=== PATIENT | male | born 1955 | race Caucasian/White ===

== ENCOUNTER 2017-10-26 21:49 | Emergency (ER) | END 2017-10-26 23:02 | disposition left against medical advice (07) ==

== ENCOUNTER 2017-11-20 14:53 | Emergency (ER) | END 2017-11-20 16:01 | disposition left against medical advice (07) ==

== ENCOUNTER 2019-01-03 00:47 | Emergency (ER) | payer OTHER ==
[~2019-01-03] VITALS: Wt 75.5 kg
--- NOTE | 2019-01-03 04:38 | ERD ---
ER Documentation Chief Complaint Chief Complaint right middle finger injury x 1 week HPI This is a 63-year-old male who presents to emerge department with complaints of right middle finger injury about a week ago. Patient stated that he accidentally hit his right middle finger to hard object, while is clean. Denies punctured wound/laceration. Denies headache, head injury, loss of consciousness, dizziness, neck pain, neck stiffness, throat pain, difficulty swallowing, difficulty breathing lying flat, shoulder pain, chest pain, back pain, abdominal pain, nausea, vomiting, constipation, diarrhea, urinary symptoms, loss of bowel and bladder control, difficulty walking due to pain, numbness or tingling sensation, calf pain, recent travel, recent major surgery in the last 3 weeks, calf pain, recent long travel, recent exposure to any illness, recent antibiotic use in the last 3 months, fever, chills, seizures. Past medical history: Surgical history: Social: Denies smoking, use of alcoholic beverages, use of illegal drugs. ROS All systems reviewed and are negative except as per history of present illness. Medications Home Meds Active Scripts Omeprazole* (Omeprazole*) 40 Mg Capsule.dr, 40 MG PO DAILY, #30 CAP Prov:PASILABAN,KLAR F 01/03/19 Ibuprofen* (Motrin*) 800 Mg Tab, 800 MG PO Q6H PRN for PAIN AND OR ELEVATED TEMP, #30 TAB Prov:PHUONGBANANGELITOAR F 01/03/19 Allergies Allergies: Coded Allergies: No Known Drug Allergies (Verified Allergy, Unknown, 10/26/17) Physical Exam Vitals Vital Signs Date Temp Pulse Resp B/P (MAP) Pulse Ox O2 O2 Flow FiO2 Time Delivery Rate 01/03/19 98.0 62 18 120/68 99 Room Air 06:36 (85) 01/03/19 97.0 86 16 170/78 97 00:53 (108) Physical Exam Const: No acute distress Head: Atraumatic Eyes: Normal Conjunctiva ENT: Normal External Ears, Nose and Mouth. Neck: Full range of motion. No meningismus. Resp: Clear to auscultation bilaterally Cardio: Regular rate and rhythm, no murmurs Abd: Soft, non tender, non distended. Normal bowel sounds Skin: No petechiae or rashes Back: No midline or flank tenderness Ext: No cyanosis, or edema. Right middle finger: Mild swelling. Good and full range of motion of MCP/PIP/DIP with no suspicion of tendon injury/septic joint. No subungual hematoma. No signs of infection, cellulitis, paronychia, onychomycosis. No neurovascular deficits. Neur: Awake and alert. No neurological deficits. Psych: Normal Mood and Affect Results 24 hrs Current Medications Medications Dose Sig/Gabby Start Time Status Last (Trade) Ordered Route PRN Stop Time Admin Dose Reason Admin 1 tab ONCE ONCE 01/03/19 DC 01/03/19 Acetaminophen PO 05:00 05:27 / 01/03/19 05:01 Hydrocodone Bitart ([place] (5/275)) Procedures/MDM Diagnostic tests: X-ray of the right middle finger: Soft tissue swelling without evidence of acute fracture. Treatment: [place]. Splinting. Finger splint. Re-evaluation: No neurovascular deficit prior to and after the application of splint. Differential diagnosis I have low suspicion for deep space infection, fracture, open fracture, tendon injury, compartment syndrome, subungual hematoma. Final diagnosis: Finger sprain. Prescription: Motrin. Follow-up with PCP in the next 24-48 hours. Come back here in the emergency dep artment for any new symptoms or any worsening symptoms. All questions and concerns were answered. Patient and family members verbalized understanding and agreed with plan of care. Hemodynamically stable on discharge. Departure Diagnosis: Primary Impression: Finger injury Additional Impression: Pain of finger Condition: Stable Additional Instructions: Follow-up with PCP in the next 24-48 hours. Come back here in the emergency department for any new symptoms or any worsening symptoms. LULU VILLAVICENCIO Jan 03, 2019 04:38
[2019-01-03] MEDS ORDERED: HYDROCODONE/APAP (5/325) TAB PO ONE (05:00)
[2019-01-03] MEDS ORDERED: IBUP800T48 PO (05:36)
[2019-01-03] MEDS ORDERED: OMEP40CA6 PO (05:36)
[2019-01-03 06:36] VITALS: BP 120/68; PULSE 62; RESP 18
== END 2019-01-03 06:38 | disposition home or self-care (01) ==
LOC: FTE 00:47
DX: S63.612A Unspecified sprain of right middle finger, initial encounter (principal); W22.8XXA Striking against or struck by other objects, initial encounter; Y92.9 Unspecified place or not applicable
CPT/HCPCS: 29130; 73140; Z7502; Z7610

== ENCOUNTER 2019-01-10 12:28 | Emergency (ER) | payer OTHER ==
[~2019-01-10] VITALS: Ht 185.4 cm; Wt 84.0 kg
[~2019-01-10 12:28] MED LIST: IBUP800T48 PO; OMEP40CA6 PO
[2019-01-10 12:31] VITALS: Ht 185.4 cm; Wt 84.0 kg
--- NOTE | 2019-01-10 13:48 | ERD ---
ER Documentation Chief Complaint Chief Complaint RIGHT CHEST WALL PAIN HURTS WITH MOVEMENTS HPI This is a 63-year-old male who presents for evaluation of right-sided chest wall pain. Pain has been going on for the last several hours, it is associated with movement, he denies history of trauma, he has no shortness of breath, he has no palpitations, he has not had a fever, no leg swelling cough or hemoptysis. ROS All systems reviewed and are negative except as per history of present illness. Medications Home Meds Active Scripts Omeprazole* (Omeprazole*) 40 Mg Capsule.dr, 40 MG PO DAILY, #30 CAP Prov:PASILABANANGELITOAR F 01/03/19 Ibuprofen* (Motrin*) 800 Mg Tab, 800 MG PO Q6H PRN for PAIN AND OR ELEVATED TEMP, #30 TAB Prov:WINILABANLULU F 01/03/19 Allergies Allergies: Coded Allergies: No Known Drug Allergies (Verified Allergy, Unknown, 10/26/17) PMhx/Soc Hx Alcohol Use: Yes Hx Tobacco Use: Yes Physical Exam Vitals Vital Signs Date Temp Pulse Resp B/P (MAP) Pulse Ox O2 O2 Flow FiO2 Time Delivery Rate 01/10/19 98.1 100 18 144/90 100 12:31 (108) Physical Exam Const: Well-appearing, nontoxic, afebrile Head: Atraumatic Eyes: Normal Conjunctiva ENT: Normal External Ears, Nose and Mouth. Neck: Full range of motion. No meningismus. Resp: Clear to auscultation bilaterally Cardio: Regular rate and rhythm, no murmurs Chest wall: There is notable point tenderness to the right chest wall, there are no hematomas, no overlying erythema, no crepitus. Abd: Soft, non tender, non distended, negative Marinelli sign, no McBurney's point tenderness.. Normal bowel sounds Skin: No petechiae or rashes Back: No midline or flank tenderness Ext: No cyanosis, or edema Neur: Awake and alert Psych: Normal Mood and Affect Result Diagram: 01/10/19 1253 01/10/19 1253 Results 24 hrs Laboratory Tests Test 01/10/19 12:53 White Blood Count 11.3 10^3/ul Red Blood Count 3.29 10^6/ul Hemoglobin 10.1 g/dl Hematocrit 31.6 % Mean Corpuscular Volume 96.0 fl Mean Corpuscular Hemoglobin 30.7 pg Mean Corpuscular Hemoglobin Concent 32.0 g/dl Red Cell Distribution Width 13.3 % Platelet Count 305 10^3/UL Mean Platelet Volume 9.3 fl Immature Granulocytes % 0.400 % Neutrophils % 78.0 % Lymphocytes % 14.4 % Monocytes % 5.6 % Eosinophils % 1.0 % Basophils % 0.6 % Nucleated Red Blood Cells % 0.0 /100WBC Immature Granulocytes # 0.050 10^3/ul Neutrophils # 8.8 10^3/ul Lymphocytes # 1.6 10^3/ul Monocytes # 0.6 10^3/ul Eosinophils # 0.1 10^3/ul Basophils # 0.1 10^3/ul Nucleated Red Blood Cells # 0.0 10^3/ul Sodium Level 142 mmol/L Potassium Level 3.4 mmol/L Chloride Level 108 mmol/L Carbon Dioxide Level 27 mmol/L Anion Gap 7 Blood Urea Nitrogen 23 mg/dl Creatinine 1.24 mg/dl Est Glomerular Filtrat Rate mL/min 59 mL/min Glucose Level 124 mg/dl Calcium Level 9.2 mg/dl Troponin I < 0.012 ng/ml Current Medications Medications Dose Sig/Gabby Start Time Status Last (Trade) Ordered Route PRN Stop Time Admin Dose Reason Admin 1,000 mg ONCE STAT 01/10/19 DC Acetaminophen PO 13:54 (Tylenol 01/10/19 13:55 Tab) Ibuprofen 400 mg ONCE ONCE 01/10/19 (Motrin) PO 14:00 01/10/19 14:01 Procedures/MDM This is a 63-year-old male who presents for evaluation of right-sided chest wall pain, without radiation. Patient had no cardiopulmonary symptoms, given his ag e, cardiac work-up was ordered to evaluate for any sign of acute coronary syndrome, this was negative, with a negative troponin, and EKG showing no evidence of acute ischemia. Chest x-ray showed cardiomegaly but was otherwise overall unremarkable. Patient was given out and is in the ED, at this point feel he is stable for outpatient follow-up, at discharge she was in no distress. EKG: Rate/Rhythm: Normal Sinus Rhythm QRS, ST, T-waves: LVH. No changes consistent w/ acute ischemia Impression: No evidence of ischemia or arrhythmia Departure Diagnosis: Primary Impression: Chest wall pain Condition: Stable MAXINE MCBRIDE MD Jan 10, 2019 13:48
[2019-01-10] MEDS ORDERED: ACETAMINOPHEN 500 MG TAB PO STA (13:54)
[2019-01-10] MEDS ORDERED: IBUPROFEN 200 MG TAB PO ONE (14:00)
[2019-01-10 14:47] VITALS: BP 141/89; PULSE 62; RESP 20
== END 2019-01-10 14:49 | disposition home or self-care (01) ==
LOC: E/R 12:28
DX: R07.89 Other chest pain (principal); R40.2142 Coma scale, eyes open, spontaneous, at arrival to emergency department; R40.2252 Coma scale, best verbal response, oriented, at arrival to emergency department; R40.2362 Coma scale, best motor response, obeys commands, at arrival to emergency department; Z87.891 Personal history of nicotine dependence
CPT/HCPCS: 71045; 80048; 84484; 85025; 93005; Z7502; Z7610

== ENCOUNTER 2019-03-06 22:27 | Emergency (ER) | payer OTHER ==
[~2019-03-06] VITALS: Ht 185.4 cm; Wt 81.0 kg
[2019-03-06 22:35] VITALS: Ht 185.4 cm; Wt 81.0 kg
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
[2019-03-07] MEDS ORDERED: ONDANSETRON (ODT) 4 MG TAB ODT STA (00:14)
[2019-03-07] MEDS ORDERED: LIDOCAINE 1% (MDV) 20 ML INJ SC ONE (00:30)
[2019-03-07] MEDS ORDERED: DIPHTH/TET/ACEL PERTUSS (ADULT) 0.5 ML VIAL IM* ONE (00:30)
[2019-03-07] MEDS ORDERED: HYDROCODONE/APAP (10/325) TAB PO ONE (00:30)
[2019-03-07] MEDS ORDERED: SULF1TAB31 PO (04:00)
[2019-03-07] MEDS ORDERED: IBUP800T48 PO (04:00)
[2019-03-07] MEDS ORDERED: NICARDipine HCL 30 MG CAPSULE PO ONE (04:30)
[2019-03-07 04:45] VITALS: BP 161/78; PULSE 79; RESP 18
== END 2019-03-07 04:50 | disposition home or self-care (01) ==
LOC: FTE 22:27
DX: S01.511A Laceration without foreign body of lip, initial encounter (principal); S06.0X0A Concussion without loss of consciousness, initial encounter; F17.210 Nicotine dependence, cigarettes, uncomplicated; Y04.2XXA Assault by strike against or bumped into by another person, initial encounter; Z23 Encounter for immunization
CPT/HCPCS: 12011; 70450; 70486; 72125; 90471; 90715; Z7502; Z7610

== ENCOUNTER 2019-03-10 13:55 | Emergency (ER) | payer OTHER ==
[~2019-03-10] VITALS: Ht 185.4 cm; Wt 77.3 kg
[~2019-03-10 13:55] MED LIST changes: +SULF1TAB31 PO
[2019-03-10 14:02] VITALS: BP 181/100; PULSE 80; RESP 20; Ht 185.4 cm; Wt 77.3 kg
[2019-03-10] MEDS ORDERED: KETOROLAC 60 MG INJ IM STA (14:46)
[2019-03-10] MEDS ORDERED: HYDR-4011 PO (14:47)
[2019-03-10] MEDS ORDERED: CYCL10TA7 PO (14:47)
[2019-03-10] MEDS ORDERED: NAPR-985 PO (14:47)
--- NOTE | 2019-03-10 14:57 | ERD ---
ER Documentation Chief Complaint Chief Complaint back pain this morning, bib [id number] HPI 83-year-old male presenting with back pain that started this morning. Patient states is his left hip and extends down his left buttock. He has pain with walking and has not taken any medications for symptoms. He denies any recent falls or traumatic injuries. He denies any numbness or tingling to his leg. Denies any changes in urination or bowel movement. Medical problems denies. Allergy to penicillin. Surgical history denies. Social history smokes cigarettes and marijuana. Drug use denies ROS All systems reviewed and are negative except as per history of present illness. Medications Home Meds Active Scripts Cyclobenzaprine Hcl* (Cyclobenzaprine Hcl*) 10 Mg Tablet, 10 MG PO TID, #15 TAB Prov:NIRU CASTLE PA-C 03/10/19 Naproxen* (Naprosyn*) 500 Mg Tablet, 500 MG PO BID PRN for PAIN AND/OR INFLAMMATION, #30 TAB Prov:NIRU CASTLE PA-C 03/10/19 Hydrocodone/Acetaminophen ([place] 5-325 Tablet) 1 Each Tablet, 1 TAB PO Q6H PRN for PAIN, #7 TAB Prov:NIRU CASTLE PA-C 03/10/19 Sulfamethoxazole/Trimethoprim* (Bactrim Ds* Tablet) 1 Each Tablet, 1 TAB PO BID for 7 Days, #14 TAB Prov:PASILABAN,ANGELITOAR F 03/07/19 Ibuprofen* (Motrin*) 800 Mg Tab, 800 MG PO Q6H PRN for PAIN AND OR ELEVATED TEMP, #30 TAB Prov:PASILABAN,KLAR F 03/07/19 Omeprazole* (Omeprazole*) 40 Mg Capsule.dr, 40 MG PO DAILY, #30 CAP Prov:PASILABAN,KLAR F 01/03/19 Ibuprofen* (Motrin*) 800 Mg Tab, 800 MG PO Q6H PRN for PAIN AND OR ELEVATED TEMP, #30 TAB Prov:PASILABAN,KLAR F 01/03/19 Allergies Allergies: Coded Allergies: Penicillins (Verified Allergy, Unknown, 03/07/19) PMhx/Soc Medical and Surgical Hx: pt denies Surgical Hx History of Surgery: No Anesthesia Reaction: No Hx Neurological Disorder: No Hx Respiratory Disorders: No Hx Cardiac Disorders: Yes (HTN) Hx Psychiatric Problems: No Hx Miscellaneous Medical Probl: No Hx Alcohol Use: Yes (occasional) Hx Substance Use: No (marijuana ) Hx Tobacco Use: Yes Smoking Status: Current some day smoker FmHx Family History: No diabetes, No coronary disease, No other Physical Exam Vitals Physical Exam GENERAL: The patient is well-appearing, well-nourished, in no acute distress CHEST: Clear to auscultation bilaterally. There are no rales, wheezes or rhonchi. HEART: Regular rate and rhythm. No murmurs, clicks, rubs or gallops BACK: No midline or flank tenderness. Tender to palpation over left paraspinous muscles extending down the buttock. EXTREMITIES: Equal pulses bilaterally. There is no peripheral clubbing, cyanosis or edema. No focal swelling or erythema. Full range of motion. Grossly neurovascularly intact. NEUROLOGIC: Alert and oriented. Cranial nerves II through XII intact. Motor strength in all 4 extremities with 5 out of 5 strength. Sensation grossly intact. Normal speech and gait. Results 24 hrs Current Medications Medications Dose Sig/Gabby Start Time Status Last (Trade) Ordered Route PRN Stop Time Admin Dose Reason Admin Ketorolac 60 mg ONCE STAT 03/10/19 DC 03/10/19 Tromethamine IM 14:46 14:56 (Toradol) 03/10/19 14:48 Procedures/MDM MDM: 63-year-old male presenting with back pain. I have low suspicion for cauda equina, discitis or epidural abscess. Patient has back pain associated with sciatica. Patient is told if symptoms change or worsen to return to ER immediately. Patient is discharged with supportive medications. All questions answered at discharge Departure Diagnosis: Primary Impression: Back pain Condition: Stable Patient Instructions: Back Pain W/ Sciatica Referrals: COMMUNITY CLINICS YOU HAVE RECEIVED A MEDICAL SCREENING EXAM AND THE RESULTS INDICATE THAT YOU DO NOT HAVE A CONDITION THAT REQUIRES URGENT TREATMENT IN THE EMERGENCY DEPARTMENT. FURTHER EVALUATION AND TREATMENT OF YOUR CONDITION CAN WAIT UNTIL YOU ARE SEEN IN YOUR DOCTORS OFFICE WITHIN THE NEXT 1-2 DAYS. IT IS YOUR RESPONSIBILITY TO MAKE AN APPOINTMENT FOR FOLOW-UP CARE. IF YOU HAVE A PRIMARY DOCTOR --you should call your primary doctor and schedule an appointment IF YOU DO NOT HAVE A PRIMARY DOCTOR YOU CAN CALL OUR PHYSICIAN REFERRAL HOTLINE AT IF YOU CAN NOT AFFORD TO SEE A PHYSICIAN YOU CAN CHOSE FROM THE FOLLOWING [facility] [address] [facility] [address] [facility] [address] [facility] [address] [facility]. [facility] [address] [facility]. [facility] [address] Additional Instructions: FOLLOW UP WITH YOUR PRIMARY CARE PHYSICIAN TOMORROW.Return to this facility if you are not improving as expected. Comments Correction to HPI, patient is a 63yo male NIRU CASTLE PA-C Mar 10, 2019 14:57 ALEX DE PAZ DO Mar 24, 2019 12:05
== END 2019-03-10 15:01 | disposition home or self-care (01) ==
LOC: FTE 13:55
DX: M54.9 Dorsalgia, unspecified (principal); I10 Essential (primary) hypertension; F17.210 Nicotine dependence, cigarettes, uncomplicated
CPT/HCPCS: 96372; J1885; Z7502